=== PATIENT | female | born 1990 | race Caucasian/White ===

== ENCOUNTER 2017-11-03 05:02 | Inpatient (IN) | payer OTHER ==
[2017-11-03 06:08] LABS: Bicarbonate 26 mEq/L (21-31); Glucose Level 116 mg/dL (65-120); Lipase 27 U/L (22-51); Potassium 4.1 mEq/L (3.6-5.0); Sodium Level 136 mEq/L (135-145)
[2017-11-03 06:10] LABS: Absolute Monocytes 0.6 K/uL (0.1-1.3); Absolute Neutrophil 8.2 K/uL (1.8-8.0); Basophils % 1.2 % (0-1.3); Eosinophils % 2.7 % (0-4.4); Hematocrit 36.9 % (36.0-45.0); Lymphocytes % 18.1 % (15.3-44.8); MCH 25.1 pg (27.0-35.0); MCV 79.9 fL (80-100); MPV 8.2 fL (7.6-11.3); Monocytes % 4.9 % (3.3-12.3); RBC Red Blood Cell Count 4.62 M/uL (3.86-4.86)
[2017-11-03 06:15] LABS: ALT/SGPT 27 IU/L (10-60); AST/SGOT 28 IU/L (10-42); Albumin 3.9 g/dL (3.2-5.5); Alkaline Phosphatase 80 IU/L (42-121); BUN Blood Urea Nitrogen 9 mg/dL (6-20); Bilirubin Direct < 0.1 mg/dL (0-0.2); Bilirubin Total 0.4 mg/dL (0.3-1.2); Protein, Total 7.8 g/dL (6.0-8.3)
[2017-11-03 06:26] LABS: Urine Bacteria <20 /HPF (<20); Urine Culture Reflex Order NOT NEEDED; Urine RBC <5 /HPF (NONE SEEN)
[2017-11-03] MEDS ORDERED: KETOROLAC 30 MG/ML INJ ONE ×2 (06:26→16:32)
[2017-11-03 06:27] LABS: Urine Blood NEGATIVE (NEG); Urine Glucose NEGATIVE (NEG); Urine Protein NEGATIVE (NEG); Urine Specific Gravity 1.015 (1.005-1.030); Urine pH 7.5 (5.0-7.0)
--- NOTE | 2017-11-03 07:33 | RAD REPORT ---
EXAM DESCRIPTION: CT - Stone Protocol - 11/03/2017 7:12 am CLINICAL HISTORY: Abdominal pain. Right upper quadrant pain COMPARISON: None. TECHNIQUE: Computed axial tomography of the abdomen pelvis was obtained without oral or IV contrast. Lack of IV and oral contrast limits evaluation of solid organs, bowel, and vessels. Coronal reformat jerry images were obtained and reviewed. All CT scans are performed using dose optimization technique as appropriate and may include automated exposure control or mA/KV adjustment according to patient size. FINDINGS: A renal calculus is not seen. An ureteral calculus is not noted. A bladder calculus is not present. The liver, spleen, pancreas and adrenals appear grossly normal There is no evidence of diverticulitis. The appendix appears normal A gallstone is present. The gallbladder is distended. The gallbladder wall appears borderline thicken ed. A 26 millimeter left ovarian cyst is seen without significant free-fluid. An IUD is in place IMPRESSION: Negative for a genitourinary calculus Cholelithiasis with gallbladder distention. Borderline gallbladder wall thickening may indicate tommie cystitis
--- NOTE | 2017-11-03 09:14 | RAD REPORT ---
EXAM DESCRIPTION: US - Abdomen Exam Limited - 11/03/2017 7:24 am CLINICAL HISTORY: Abdominal pain. COMPARISON: Cat scan November 03, 2017 FINDINGS: A 22 millimeter stone is lodged within the gallbladder neck. The gallbladder wall is borde rline are thickened. The gallbladder is distended. . The biliary tree is normal caliber. IMPRESSION: Impacted gallstone within the gallbladder neck. The gallbladder is distended. Borderline gallbladder wall thickening may indicate cholecystitis
--- NOTE | 2017-11-03 09:51 | EDPHYS ---
Physician Documentation [facility] Name: Geri Mata Age: 27 yrs Sex: Female : 1990 Arrival Date: 11/03/2017 Time: 05:05 Bed 19 Private MD: ED Physician Garcia Lopez HPI: 11/03 05:51 This 27 yrs old Female presents to ER via Ambulatory with complaints of kdr Breast Problem. 05:51 The patient presents with abdominal pain in the right upper quadrant. Onset: The kdr symptoms/episode began/occurred suddenly. 05:52 Onset: The symptoms/episode began/occurred The patient states that she had RUQ pain kdr that started about 2100 last night and as of 0400 this morning, she still had pain to the RUQ but now she also has pain in her right breast. She has not had this before.. The symptoms radiate to right breast. Associated signs and symptoms: Pertinent positives: nausea and vomiting, chest pain, Pertinent negatives: blood in stools, constipation, diarrhea, headache, hematuria, palpitations, shortness of breath, vaginal discharge, vomiting blood. The symptoms are described as achy, sharp, waxing/waning. Modifying factors: The symptoms are alleviated by nothing, the symptoms are aggravated by touching the area, vomiting. Severity of pain: At its worst the pain was mild moderate just prior to arrival, in the emergency department the pain is unchanged. 11/04 08:33 The patient has not experienced similar symptoms in the past. The patient has not kdr recently seen a physician. 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 - Social history:: Smoking status: Patient/guardian denies using tobacco. - Ebola Screening: : No symptoms or risks identified at this time. ROS: 11/04 08:33 Constitutional: Negative for fever, chills, and weight loss, Eyes: Negative for injury, kdr pain, redness, and discharge, Neck: Negative for injury, pain, and swelling, Cardiovascular: Negative for chest pain, palpitations, and edema, Respiratory: Negative for shortness of breath, cough, wheezing, and pleuritic chest pain, Back: Negative for injury and pain, : Negative for injury, bleeding, discharge, and swelling, MS/Extremity: Negative for injury and deformity, Skin: Negative for injury, rash, and discoloration, Neuro: Negative for headache, weakness, numbness, tingling, and seizure activity. Psych: Negative for depression, anxiety, suicide ideation, homicidal ideation, and hallucinations, Allergy/Immunology: Negative for hives, rash, and allergies, Endocrine: Negative for neck swelling, polydipsia, polyuria, polyphagia, and marked weight changes, Hematologic/Lymphatic: Negative for swollen nodes, abnormal bleeding, and unusual bruising. Abdomen/GI: Positive for abdominal pain, nausea. Exam: 08:33 Constitutional: This is a well developed, well nourished patient who is awake, alert, kdr and in no acute distress. Head/Face: Normocephalic, atraumatic. Eyes: Pupils equal round and reactive to light, extra-ocular motions intact. Lids and lashes normal. Conjunctiva and sclera are non-icteric and not injected. Cornea within normal limits. Periorbital areas with no swelling, redness, or edema. Neck: Trachea midline, no thyromegaly or masses palpated, and no cervical lymphadenopathy. Supple, full range of motion without nuchal rigidity, or vertebral point tenderness. No Meningismus. Chest/axilla: Normal chest wall appearance and motion. Nontender with no deformity. No lesions are appreciated. Cardiovascular: Regular rate and rhythm with a normal S1 and S2. No gallops, murmurs, or rubs. Normal PMI, no JVD. No pulse deficits. Respiratory: Lungs have equal breath sounds bilaterally, clear to auscultation and percussion. No rales, rhonchi or wheezes noted. No increased work of breathing, no retractions or nasal flaring. Back: No spinal tenderness. No costovertebral tenderness. Full range of motion. Skin: Warm, dry with normal turgor. Normal color with no rashes, no lesions, and no evidence of cellulitis. MS/ Extremity: Pulses equal, no cyanosis. Neurovascular intact. Full, normal range of motion. Neuro: Awake and alert, GCS 15, oriented to person, place, time, and situation. Cranial nerves II-XII grossly intact. Motor strength 5/5 in all extremities. Sensory grossly intact. Cerebellar exam normal. Normal gait. Psych: Awake, alert, with orientation to person, place and time. Behavior, mood, and affect are within normal limits. 08:33 Abdomen/GI: Inspection: abdomen appears normal, Bowel sounds: active, all quadrants, Palpation: soft, mild abdominal tenderness, in the right upper quadrant. Vital Signs: 11/03 05:15 BP 129 / 87; Pulse 74; Resp 18; Temp 98.2(O); Pulse Ox 100% on R/A; Weight 65.77 kg ak1 (R); Height 5 ft. 4 in. (162.56 cm); Pain 8/10; 07:00 BP 106 / 73; Pulse 56; Resp 17; Pulse Ox 100% on R/A; rb1 08:00 BP 112 / 76; Pulse 63; Resp 18; Pulse Ox 100% on R/A; dh3 09:12 BP 106 / 62; Pulse 65; Resp 14; Temp 98.2(O); Pulse Ox 99% on R/A; Pain 4/10; ch 10:18 BP 110 / 62; Pulse 68; Resp 18; Temp 98.3(O); Pulse Ox 99% on R/A; Pain 6/10; ch 11:36 BP 118 / 78; Pulse 54; Resp 18; Temp 98.3; Pulse Ox 99% on R/A; Pain 3/10; ch 12:19 BP 110 / 52; Pulse 62; Resp 12; Temp 97.9; Pulse Ox 97% on R/A; Pain 3/10; ch 05:15 Body Mass Index 24.89 (65.77 kg, 162.56 cm) ak1 MDM: 06:28 Patient medically screened. snw 07:43 Data reviewed: vital signs, nurses notes. Data interpreted: Pulse oximetry: on room air snw is 100 %. Interpretation: normal. Counseling: I had a detailed discussion with the patient and/or guardian regarding: the historical points, exam findings, and any diagnostic results supporting the discharge/admit diagnosis, lab results, radiology results. Physician consultation: Dr Perez in the emergency department to see patient at 07:44, Dr. Perez will speak with Dr Grubbs re: condition and plan of care. 11/03 05:38 Order name: Basic Metabolic Panel; Complete Time: 06:25 kdr 11/03 05:38 Order name: CBC with Diff; Complete Time: 06:25 kdr 11/03 05:38 Order name: Creatinine for Radiology; Complete Time: 06:25 kdr 11/03 05:38 Order name: Hepatic Function; Complete Time: 06:25 kdr 11/03 05:38 Order name: Lipase; Complete Time: 06:25 kdr 11/03 05:38 Order name: Urine Microscopic Only; Complete Time: 06:27 kdr 11/03 05:38 Order name: US Abdomen Limited; Complete Time: 09:38 kdr 11/03 05:52 Order name: CT Stone Protocol; Complete Time: 07:40 kdr 11/03 06:25 Order name: Urine Dipstick--Ancillary (enter results); Complete Time: 06:28 eb 11/03 06:25 Order name: Urine --Ancillary (enter results); Complete Time: 06:28 eb 11/03 05:38 Order name: IV Saline Lock; Complete Time: 06:05 kdr 11/03 05:38 Order name: Labs collected and sent; Complete Time: 06:05 kdr 11/03 05:38 Order name: Urine Dipstick-Ancillary (obtain specimen); Complete Time: 06:48 kdr 11/03 09:54 Order name: NPO; Complete Time: 10:01 snw Administered Medications: 06:29 Drug: TORadol 30 mg Route: IVP; Site: right antecubital; ao 06:48 Follow up: Response: No adverse reaction ao 10:17 Drug: Mefoxin 1 grams Route: IV; Rate: calculated rate; Site: right antecubital; ch 10:23 Follow up: Response: No adverse reaction; IV Status: Completed infusion; IV Intake: 10mlch 10:17 Drug: fentaNYL (PF) 25 mcg Route: IVP; Site: right antecubital; ch 11:37 Follow up: Response: No adverse reaction; Marked relief of symptoms ch 10:18 Not Given (wrong order, medication is given in 10mL NS iv push over 3-5 min per policy/pharmacy): Mefoxin 1 grams IVPB once over 30 mins; (mix in 50 mL NS) Disposition: 11/04 08:30 Co-signature as Attending Physician, Garcia Lopez MD I agree with the assessment and kdr plan of care. Disposition: 11/03/17 09:51 Hospitalization ordered by Dinesh Grubbs for Inpatient Admission. Preliminary diagnosis is Choledocolithiasis. - Bed requested for Telemetry/MedSurg (Inpatient). - Status is Inpatient Admission. sv - Condition is Stable. - Problem is new. - Symptoms have worsened. UTI on Admission? No Signatures: Dispatcher [employer] EDMS Bibi Aguilar, RN RN Etta Johnson RN RN Garcia Lopez MD MD [facility] Amira Medrano, AUDIO VISUAL COORDINATOR-C AUDIO VISUAL COORDINATOR-Csnw Willow Barr Amber, RN RN ak1 Boom Dotson, RN RN ao Corrections: (The following items were deleted from the chart) 11/03 09:52 09:51 Hospitalization Ordered by Clif Finch DO for Inpatient Admission. Preliminary [facility] diagnosis is Choledocolithiasis. Bed requested for Telemetry/MedSurg (Inpatient). Status is Inpatient Admission. Condition is Stable. Problem is new. Symptoms have worsened. UTI on Admission? No. snw 11:48 09:52 11/03/2017 09:51 Hospitalization Ordered by Dinesh Grubbs MD for Inpatient ag Admission. Preliminary diagnosis is Choledocolithiasis. Bed requested for Telemetry/MedSurg (Inpatient). Status is Inpatient Admission. Condition is Stable. Problem is new. Symptoms have worsened. UTI on Admission? No. snw 12:37 11:48 11/03/2017 09:51 Hospitalization Ordered by Dinesh Grubbs MD for Inpatient sv Admission. Preliminary diagnosis is Choledocolithiasis. Bed requested for Telemetry/MedSurg (Inpatient). Status is Inpatient Admission. Condition is Stable. Problem is new. Symptoms have worsened. UTI on Admission? No. ag
--- NOTE | 2017-11-03 09:51 | ER ---
Nurse's Notes [facility] Name: Geri Mata Age: 27 yrs Sex: Female : 1990 Arrival Date: 11/03/2017 Time: 05:05 Bed 19 Private MD: Diagnosis: Choledocolithiasis Presentation: 11/03 05:14 Presenting complaint: Patient states: right breast pain since 0400. pt stated pain ak1 started under right breast/rib area at 2100 last night. pt c/o right flank pain, nausea. pt had tylenol at 2300. pt c/o increased urinary frequency. Transition of care: patient was not received from another setting of care. Onset of symptoms was November 02, 2017. Risk Assessment: Do you want to hurt yourself or someone else? Patient reports no desire to harm self or others. Initial Sepsis Screen: Does the patient meet any 2 criteria? No. Patient's initial sepsis screen is negative. Does the patient have a suspected source of infection? No. Patient's initial sepsis screen is negative. Care prior to arrival: None. 05:14 Method Of Arrival: Ambulatory ak1 05:14 Acuity: MOLINA 3 ak1 Triage Assessment: 05:19 General: Appears uncomfortable, Behavior is calm, cooperative. Pain: Complains of pain ak1 in right breast, right flank. 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 - Social history:: Smoking status: Patient/guardian denies using tobacco. - Ebola Screening: : No symptoms or risks identified at this time. Screenin:18 Abuse screen: Denies threats or abuse. Denies injuries from another. Nutritional ak1 screening: No deficits noted. Tuberculosis screening: No symptoms or risk factors identified. Fall Risk None identified. Assessment: 05:22 General: Appears in no apparent distress. uncomfortable, Behavior is calm, cooperative, ao appropriate for age. Pain: Complains of pain in Right flank adiating to the breast. Neuro: Level of Consciousness is awake, alert, obeys commands, Oriented to person, place, time, situation, Appropriate for age Moves all extremities. Speech is normal, Facial symmetry appears normal, Pupils are PERRLA. Cardiovascular: Heart tones S1 S2 Capillary refill < 3 seconds Patient's skin is warm and dry. Respiratory: Airway is patent Respiratory effort is Respiratory pattern is regular, symmetrical. GI: Abdomen is non-distended. : No signs and/or symptoms were reported regarding the genitourinary system. EENT: No signs and/or symptoms were reported regarding the EENT system. Derm: Skin is intact, Skin is pink, warm \T\ dry. Skin temperature is warm. Musculoskeletal: Capillary refill < 3 seconds, Range of motion: intact in all extremities. 06:21 Reassessment: Patient appears in no apparent distress at this time. Patient and/or ao family updated on plan of care and expected duration. Pain level reassessed. Patient is alert, oriented x 3, equal unlabored respirations, skin warm/dry/pink. 07:00 General: Appears in no apparent distress. comfortable, Behavior is calm, cooperative. rb1 Neuro: Level of Consciousness is awake, alert, obeys commands, Oriented to person, place, time, situation. Cardiovascular: Capillary refill < 3 seconds is brisk in bilateral fingers. Respiratory: Airway is patent Respiratory effort is even, unlabored, Respiratory pattern is regular, symmetrical. Derm: Skin is pink, warm \T\ dry. Musculoskeletal: Range of motion: intact in all extremities. 09:12 Reassessment: Patient appears in no apparent distress at this time. Patient and/or ch family updated on plan of care and expected duration. Pain level reassessed. Patient is alert, oriented x 3, equal unlabored respirations, skin warm/dry/pink. pt states her pain is starting to come back. states it is a 4 now. 10:18 Reassessment: Patient appears in no apparent distress at this time. Patient and/or ch family updated on plan of care and expected duration. Pain level reassessed. Patient is alert, oriented x 3, equal unlabored respirations, skin warm/dry/pink. pt c/o increasing pain. pt medicated per orders. . 11:36 Reassessment: Patient appears in no apparent distress at this time. No changes from ch previously documented assessment. Patient and/or family updated on plan of care and expected duration. Pain level reassessed. Patient is alert, oriented x 3, equal unlabored respirations, skin warm/dry/pink. pt states her pain is slightly better. awaiting admitting physician to come visit pt and put orders in the computer. 11:58 Reassessment: Patient appears in no apparent distress at this time. attempted to call ch report now, awaiting return call from RN. Vital Signs: 05:15 BP 129 / 87; Pulse 74; Resp 18; Temp 98.2(O); Pulse Ox 100% on R/A; Weight 65.77 kg ak1 (R); Height 5 ft. 4 in. (162.56 cm); Pain 8/10; 07:00 BP 106 / 73; Pulse 56; Resp 17; Pulse Ox 100% on R/A; rb1 08:00 BP 112 / 76; Pulse 63; Resp 18; Pulse Ox 100% on R/A; dh3 09:12 BP 106 / 62; Pulse 65; Resp 14; Temp 98.2(O); Pulse Ox 99% on R/A; Pain 4/10; ch 10:18 BP 110 / 62; Pulse 68; Resp 18; Temp 98.3(O); Pulse Ox 99% on R/A; Pain 6/10; ch 11:36 BP 118 / 78; Pulse 54; Resp 18; Temp 98.3; Pulse Ox 99% on R/A; Pain 3/10; ch 12:19 BP 110 / 52; Pulse 62; Resp 12; Temp 97.9; Pulse Ox 97% on R/A; Pain 3/10; ch 05:15 Body Mass Index 24.89 (65.77 kg, 162.56 cm) ak1 ED Course: 05:05 Patient arrived in ED. al2 05:15 Triage completed. ak1 05:15 Arm band placed on Patient placed in an exam room, on a stretcher, on pulse oximetry, ak1 Patient notified of wait time. 05:19 Garcia Lopez MD is Attending Physician. kdr 05:19 Patient has correct armband on for positive identification. Bed in low position. Call ak1 light in reach. Side rails up X 1. Pulse ox on. NIBP on. 05:40 Boom Dotson RN is Primary Nurse. ao 06:00 Inserted saline lock: 22 gauge in right antecubital area, using aseptic technique. ao ,using aseptic technique. by Mykena Blood collected. 06:23 Amira Medrano F[facility]-C [facility] snw 07:06 Primary Nurse role handed off by Boom Dotson RN ao 07:08 Margi Bloom, RN is Primary Nurse. rb1 07:12 CT Stone Protocol In Process Unspecified. EDMS 07:12 CT completed. Patient tolerated procedure well. Patient moved to CT via wheelchair. eh Patient moved back from CT. 07:23 US Abdomen Limited In Process Unspecified. EDMS 09:10 Primary Nurse role handed off by Margi Bloom, BEE ch 09:10 Bibi Aguilar, BEE is Primary Nurse. 09:49 Clif Finch DO is Hospitalizing Provider. snw 09:52 Hospitalizing Provider role handed off by Clif Finch DO snw 09:52 Dinesh Grubbs MD is Hospitalizing Provider. snw 12:19 No provider procedures requiring assistance completed. Patient admitted, IV remains in place. Administered Medications: 06:29 Drug: TORadol 30 mg Route: IVP; Site: right antecubital; ao 06:48 Follow up: Response: No adverse reaction ao 10:17 Drug: Mefoxin 1 grams Route: IV; Rate: calculated rate; Site: right antecubital; ch 10:23 Follow up: Response: No adverse reaction; IV Status: Completed infusion; IV Intake: 10mlch 10:17 Drug: fentaNYL (PF) 25 mcg Route: IVP; Site: right antecubital; ch 11:37 Follow up: Response: No adverse reaction; Marked relief of symptoms ch 10:18 Not Given (wrong order, medication is given in 10mL NS iv push over 3-5 min per policy/pharmacy): Mefoxin 1 grams IVPB once over 30 mins; (mix in 50 mL NS) Intake: 10:23 IV: 10ml; Total: 10ml. Outcome: 09:51 Decision to Hospitalize by Provider. snw 12:19 Admitted to Med/surg ch 12:19 Admitted to Med/surg accompanied by tech, via wheelchair, room 207, with chart, Report called to Nadeen GAMBOA 12:19 Condition: stable Signatures: Dispatcher [employer] EDBibi Giron, RN RN Etta Morales, RN RN sv Garcia Lopez MD MD kdr Therrien, Shelly, RD PROJECT MANAGER-C RD PROJECT MANAGER-Csnw Juan Skelton Amber, RN RN ak1 Margi Bloom, RN RN rb1 Boom Dotson, RN RN nav Bond, Zoraida 3 Francisca, Kia bruno2 Corrections: (The following items were deleted from the chart) 05:17 05:14 Presenting complaint: Patient states: right breast pain since 0400. pt stated ak1 pain started under right breast/rib area at 2100 last night. pt c/o right flank pain, nausea. pt had tylenol at 2300 ak1 19:55 12:37 Patient left the ED. ilana rb1
[2017-11-03] MEDS ORDERED: CEFOXITIN/SWI 1gm 1 GM/10 ML SYR ONE ×2 (10:06→23:38)
[2017-11-03] MEDS ORDERED: FENTANYL CITR 100 MCG/2 ML ONE ×3 (10:09→15:54)
[2017-11-03] MEDS ORDERED: MORPHINE 4 MG/ML SYR IV PRN (11:57)
[2017-11-03] MEDS ORDERED: ONDANSETRON 4 MG/2 ML VIAL IV PRN ×2 (11:57→17:11)
[2017-11-03] MEDS ORDERED: ACETAMINOPHEN 500 MG TAB PO PRN (11:57)
[2017-11-03] MEDS: D5 0.45 NS 1,000 ML IV SCH ×2 (14:04→19:13)
[2017-11-03] MEDS ORDERED: Ringers Lactate 1,000 ML IV ONE ×2 (15:03→16:17)
--- NOTE | 2017-11-03 15:12 | P.HP ---
Date of Service: 11/03/17 PC: This 27-year-old female presented to the emergency room with severe right breast pain for diagnosis and treatment. HPC: Patient as she was having severe pain in her right breast started last night. Was causing a great anxiety. Seemed later to radiate into her back. PMH: Migraine PSHx: Ankle surgery SOC: No known allergy SYS REVIEW: States she is otherwise a healthy female. Active, stepmom to 3 children. No cough, wheeze, shortness of breath. No chest pain or palpitations prior to this. Normal bowel habit. Her biggest issue has been her headaches and her recent medication has caused her to have some rapid weight loss. O/E awake alert stable HEENT: Not jaundice Chest: Chest movement equal bilaterally ABD: Mild right upper quadrant tenderness LOCO: Intact DATA: Documented cholecystitis with cholelithiasis IMPRESSION: Cholecystitis with cholelithiasis PLAN: I will take her to the operating room for laparoscopic possible open cholecystectomy with intraoperative cholangiogram. The risks of this procedure have been discussed. The possibility of bleeding, infection, injury to bile ducts blood vessels and intestines has been described. The possible need for an open and/or further surgeries and procedures was discussed. She understands and wants us to proceed. The
[2017-11-03] MEDS ORDERED: GLYCOPYRROLATE 0.2 MG/ML SYR ONE (15:54)
[2017-11-03] MEDS ORDERED: NEOSTIGMINE 1 MG/ML -5 ML SYRINGE ONE (15:54)
[2017-11-03] MEDS ORDERED: PROPOFOL 200 MG/20 ML VIAL IV ONE (15:54)
[2017-11-03] MEDS ORDERED: MIDAZOLAM HCL 2 MG/2 ML INJ ONE (15:54)
[2017-11-03] MEDS ORDERED: ROCURONIUM 50 MG/5 ML VIAL IV ONE (15:54)
[2017-11-03] MEDS ORDERED: ONDANSETRON HCL 40 MG/20 ML VIAL ONE (15:55)
[2017-11-03] MEDS ORDERED: BUPIVACAINE 0.5% Inj,MDV 50 mL VIAL ONE (16:21)
[2017-11-03] MEDS: MEPERIDINE HCL 50 MG/ML AMP ONE ×2 (16:25→16:30)
--- NOTE | 2017-11-03 16:47 | P.OP ---
Preoperative diagnosis: Acute on chronic cholecystitis with cholelithiasis Postoperative diagnosis: The same Primary procedure: Laparoscopic cholecystectomy Secondary procedure: Cholangiogram Anesthesia: General Estimated blood loss: Less than 10 cc Specimen: 1 sent Operative Technique: The patient was brought to the operating room placed supine on the table. After the induction of adequate general endotracheal anesthesia, the area of the abdomen is prepped with a DuraPrep solution, and draped in the usual aseptic manner. A subumbilical incision was made. This brought down through the skin and subcutaneous tissue. The Visiport was used to enter the peritoneal cavity and created pneumoperitoneum to approximately 12 mm of mercury. Under direct vision a 5 mm trocar was placed in the upper midline, and 2 other 5 mm trocars on the right lateral side. The patient's head was then elevated and rolled towards the die operator's side. We could see a distended an inflamed gallbladder. It was necessary to aspirate its contents that we could place a grasper on it. The effluent was white bile. A grasper was placed on the fundus of the gallbladder. Another 1 was placed down by Benjie's pouch. Applying lateral traction we were able to dissect and expose the cystic duct and artery. The artery was dealt with 1st. It was clipped and divided in the usual manner. A clip was then placed between the gallbladder and the cystic duct. An opening was made into the cystic duct. We attempted then to pass the cholangiocath into the cystic duct. The catheter was placed. The cholangiogram demonstrated good flow contrast into the duodenum, no filling defects were seen. Clips were now placed on the distal portion of the cystic duct. The cystic duct was then divided. The gallbladder was now dissected free from the liver bed, placed into an Endo-Catch, and brought out through the umbilical trocar site. The gallbladder fossa was inspected to ensure adequate hemostasis. It was irrigated with a saline solution and the irrigant aspirated from the peritoneal cavity. 0.25% Marcaine was aerosolized into the right upper quadrant and the gallbladder fossa. The umbilical trocar site was now approximated with an Endo Close and an absorbable sutures. The pneumoperitoneum was then collapsed, the suture tied, and nichelle applied to the skin. A further 0.25% Marcaine was injected around are incision sites. At the end of the procedure the patient was in a stable condition when sent to the recovery room. Needle sponge instrument count were correct. 1 specimen was sent for histopathology. Transferred to: Recovery Room Condition: Good
[2017-11-03] MEDS ORDERED: MEPERIDINE HCL 25 MG/0.5 ML ONE (16:48)
[2017-11-03] MEDS: Ringers Lactate 1,000 ML IV SCH (17:11)
[2017-11-03] MEDS ORDERED: Morphine 2 MG/2 ML SYR IV PRN (17:11)
[2017-11-03] MEDS: CEFOXITIN/SWI 1gm 1 GM/10 ML SYR IV SCH ×2 (17:59→23:42)
--- NOTE | 2017-11-03 18:51 | RAD REPORT ---
EXAM DESCRIPTION: RAD - Cholangiogram Oper-Xray Or - 11/03/2017 5:31 pm FINDINGS: Right upper quadrant fluoroscopy performed. Multiple portable C-arm views were obtained during fluoroscopic assisted intraoperative cholangiogram . Gallbladder has been resected. No biliary tree dilatation. No stricture, mass or duct stone identif iable on the selected images. Assessment is limited when only selected images are available. Correlation is needed with findings du ring real-time evaluation.
[2017-11-03] MEDS: HYDROCODONE/APAP 7.5/325 MG TAB PO PRN (22:16)
[2017-11-04] MEDS: Ringers Lactate 1,000 ML IV SCH (02:30)
[2017-11-04] MEDS: CEFOXITIN/SWI 1gm 1 GM/10 ML SYR IV SCH (05:37)
[2017-11-04 05:38] LABS: Absolute Lymphocytes (CBC) 2.1 K/uL (0.7-4.9); Absolute Monocytes 0.8 K/uL (0.1-1.3); Absolute Neutrophil 6.2 K/uL (1.8-8.0); Eosinophils % 1.7 % (0-4.4); Hematocrit 33.6 % (36.0-45.0); Lymphocytes % 22.3 % (15.3-44.8); MCH 25.7 pg (27.0-35.0); MCV 79.9 fL (80-100); MPV 7.9 fL (7.6-11.3); Monocytes % 8.3 % (3.3-12.3)
[2017-11-04 06:09] LABS: ALT/SGPT 36 IU/L (10-60); AST/SGOT 39 IU/L (10-42); Albumin 3.2 g/dL (3.2-5.5); Alkaline Phosphatase 70 IU/L (42-121); BUN Blood Urea Nitrogen 5 mg/dL (6-20); Bicarbonate 27 mEq/L (21-31); Bilirubin Direct 0.1 mg/dL (0-0.2); Bilirubin Total 0.5 mg/dL (0.3-1.2); Glucose Level 123 mg/dL (65-120); Lipase 28 U/L (22-51); Protein, Total 6.3 g/dL (6.0-8.3); Sodium Level 137 mEq/L (135-145)
[2017-11-04] MEDS: HYDROCODONE/APAP 7.5/325 MG TAB PO PRN (07:43)
== END 2017-11-04 14:50 | disposition home or self-care (01) | DRG 419 ==
LOC: ER 05:02 → ERHOLD 10:17 → 2ND 12:21
PROVIDERS: ADMIT Surgery; ATTEND Surgery
PROC: BF00YZZ Plain Radiography of Bile Ducts using Other Contrast (ICD-10-PCS; 2017-11-03)
PROC: 0FT44ZZ Resection of Gallbladder, Percutaneous Endoscopic Approach (ICD-10-PCS; principal; 2017-11-03 15:15)
DX: K80.12 Calculus of gallbladder with acute and chronic cholecystitis without obstruction (principal); Z97.5 Presence of (intrauterine) contraceptive device
CPT/HCPCS: 36415; 74176; 74300; 76377; 76705; 80048; 80076; 81003; 81015; 81025; 83690; 85025; 88304; 96374; 96375; 99285; J2175; J2250; J2405; J2710; J3010; Q9967